=== PATIENT | female | born 1970 | race Caucasian/White ===

== ENCOUNTER 2023-09-28 09:52 | Emergency (ER) | payer OTHER ==
[~2023-09-28] VITALS: Ht 167.6 cm; Wt 65.5 kg
[2023-09-28 10:03] VITALS: BP 109/71; TEMP 97.6
[2023-09-28] MEDS ORDERED: diphenhydrAMINE 50 MG/ML 1 ML VIAL IV ONE (10:15)
[2023-09-28] MEDS ORDERED: Ketorolac 30 MG/ML VIAL IV ONE (10:15)
[2023-09-28] MEDS ORDERED: NS 1,000 ML IV ONE (10:15)
[2023-09-28] MEDS ORDERED: Acetamin/Butalbital/Caffeine 325-50-40 MG TAB PO ONE (11:15)
[2023-09-28 12:19] VITALS: PULSE 70
== END 2023-09-28 12:09 | disposition home or self-care (01) ==
LOC: COL.ER 09:52
DX: G43.909 Migraine, unspecified, not intractable, without status migrainosus (principal)
CPT/HCPCS: J1200; J1885; J2765; J7030